=== PATIENT | male | born 1995 | race Caucasian/White ===

== ENCOUNTER 2016-07-17 11:49 | Emergency (ER) | payer BC ==
[~2016-07-17] VITALS: Ht 180.3 cm; Wt 105.0 kg
[~2016-07-17 11:49] MED LIST: FAMO-18 PO
[2016-07-17 11:51] VITALS: Ht 180.3 cm; Wt 105.0 kg
[2016-07-17] MEDS ORDERED: BACTDS PO (12:07)
[2016-07-17] MEDS ORDERED: CEPH-443 PO (12:07)
--- NOTE | 2016-07-17 12:12 | ERA ---
ER Documentation Chief Complaint Date/Time DATE: 07/17/16 TIME: 12:08 Chief Complaint PUNCTURE WOUND ON LT FOOT , STEPPED ON NAIL LAST NIGHT HPI Patient is a 21-year-old male who presents one day after sustaining a puncture wound to his right heel. Patient denies any swelling, discharge, erythema, pain , fever, ataxia, dizziness, knockout, injury to other body parts, difficulty breathing or chest pain. There are no other associated manifestations. ROS All systems reviewed and are negative except as per history of present illness. Medications Home Meds Active Scripts Sulfamethoxazole-Trimethoprim* (Bactrim* DS) 800-160 Mg Tab, 1 TAB PO BID for 5 Days, TAB Prov:RAHEEM PERLA PA-C 07/17/16 Cephalexin* (Keflex*) 500 Mg Capsule, 500 MG PO QID for 5 Days, CAP Prov:RAHEEM PERLA PA-C 07/17/16 Famotidine* (Pepcid*) 20 Mg Tablet, 20 MG PO BID Y for reflux, #30 TAB Prov:ROBIN DECKER PA-C 12/02/15 PMhx/Soc History of Surgery: No Anesthesia Reaction: No Hx Neurological Disorder: No Hx Respiratory Disorders: No Hx Cardiac Disorders: No Hx Psychiatric Problems: No Hx Miscellaneous Medical Probl: Yes (HYPOTHYROIDISM) Hx Alcohol Use: No Hx Substance Use: Yes (MARIJUANA 2XDAYS) Hx Tobacco Use: No Physical Exam Vitals Vital Signs Date Time Temp Pulse Resp B/P Pulse Ox O2 Delivery O2 Flow Rate FiO2 07/17/16 11:51 98.1 73 18 147/89 98 Physical Exam Const: Well-appearing obese 21-year-old male. Head: Atraumatic Eyes: Normal Conjunctiva ENT: Normal External Ears, Nose and Mouth. Neck: Full range of motion..~ No meningismus. Resp: Clear to auscultation bilaterally Cardio: Regular rate and rhythm, no murmurs Abd: Soft, non tender, non distended. Normal bowel sounds Skin: No petechiae or rashes Back: No midline or flank tenderness Ext: No cyanosis, or edema. Light superficial puncture wound. Can see the track of the puncture wound spanning 1 cm superiorly of the right heel. The width of the visible tract is about 1 mm. There is no opening in the skin currently. No bleeding or discharge. No erythema or swelling. Neurovascularly intact bilaterally. Neur: Awake and alert Psych: Normal Mood and Affect Results 24 hrs Current Medications Medications (Trade) Dose Ordered Sig/Scott Route PRN Reason Start Time Stop Time Status Last Admin Dose Admin Diphtheria/ Tetanus/Acell Pertussis (Adacel) 0.5 ml ONCE ONCE IM* 07/17/16 12:30 07/17/16 12:31 Procedures/MDM Patient has sustained a puncture wound to the right heel one day ago. Denies any symptoms or signs of infection. On physical exam the wound looks clean and is closed up with no bleeding or signs of infection. We will give Tdap for tetanus prophylaxis as well as discharge with Keflex and Bactrim for infection prophylaxis. Patient refuses any pain medication. Will give return precautions. Departure Diagnosis: Primary Impression: Puncture Condition: Stable Patient Instructions: Puncture Wound, Foot Additional Instructions: Return to emergency department if signs of infection arise. RAHEEM PERLA PA-C Jul 17, 2016 12:12
[2016-07-17] MEDS ORDERED: DIPHTH/TET/ACEL PERTUSS (ADULT) 0.5 ML VIAL IM* ONE (12:30)
== END 2016-07-17 13:08 | disposition home or self-care (01) ==
LOC: FTE 11:49
DX: S91.331A Puncture wound without foreign body, right foot, initial encounter (principal); E03.9 Hypothyroidism, unspecified; W45.0XXA Nail entering through skin, initial encounter; Y92.9 Unspecified place or not applicable; Z23 Encounter for immunization
CPT/HCPCS: 90471; 90715; Z7502

== ENCOUNTER 2016-08-10 12:33 | Emergency (ER) | payer BC ==
[~2016-08-10] VITALS: Wt 92.0 kg
[~2016-08-10 12:33] MED LIST changes: +BACTDS PO; +CEPH-443 PO
[2016-08-10] MEDS ORDERED: BEN25 PO (13:11)
[2016-08-10] MEDS ORDERED: PRED20TA PO (13:11)
[2016-08-10] MEDS ORDERED: CETI10CA PO (13:12)
--- NOTE | 2016-08-10 13:17 | ERD ---
ER Documentation Chief Complaint Date/Time DATE: 08/10/16 TIME: 13:12 Chief Complaint rash to gen body area. no sob noted. no vomiting or stridor HPI Patient is a 21-year-old male who presents emergency department with a generalized body rash. Patient states the rash occurred 3 days ago after hiking outside. Patient states he did take his shirt off and then tied around his neck. Patient does report increased redness to his neck region. Patient does report itching throughout his body. Patient denies any chest tightness, chest pain, shortness of breath, lip swelling, tongue swelling or throat swelling. Patient denies any new creams, lotions, detergents, foods or pets. Patient denies taking any medication for symptoms. ROS All systems reviewed and are negative except as per history of present illness. Medications Home Meds Active Scripts Cetirizine Hcl* (Zyrtec*) 10 Mg Capsule, 10 MG PO DAILY, #30 TAB.CHEW Prov:SHAWANDA TEMPLE PA-C 08/10/16 Diphenhydramine Hcl* (Benadryl*) 25 Mg Cap, 25 MG PO Q6, #30 CAP Prov:SHAWANDA TEMPLE PA-C 08/10/16 Prednisone* (Prednisone*) 20 Mg Tab, 40 MG PO DAILY for 5 Days, TAB Prov:SHAWANDA TEMPLE PA-C 08/10/16 Sulfamethoxazole-Trimethoprim* (Bactrim* DS) 800-160 Mg Tab, 1 TAB PO BID for 5 Days, TAB Prov:RAHEEM PERLA PA-C 07/17/16 Cephalexin* (Keflex*) 500 Mg Capsule, 500 MG PO QID for 5 Days, CAP Prov:RAHEEM PERLA PA-C 07/17/16 Famotidine* (Pepcid*) 20 Mg Tablet, 20 MG PO BID Y for reflux, #30 TAB Prov:ROBIN DECKER PA-C 12/02/15 Allergies Allergies: Coded Allergies: No Known Allergy (Unverified , 07/17/16) PMhx/Soc History of Surgery: Yes (TONSILLECTOMY) Anesthesia Reaction: No Hx Neurological Disorder: No Hx Respiratory Disorders: No Hx Cardiac Disorders: No Hx Psychiatric Problems: No Hx Miscellaneous Medical Probl: Yes (HYPOTHYROIDISM) Hx Alcohol Use: No Hx Substance Use: Yes (MARIJUANA 2XDAYS) Hx Tobacco Use: No FmHx Family History: No diabetes Physical Exam Vitals Vital Signs Date Time Temp Pulse Resp B/P Pulse Ox O2 Delivery O2 Flow Rate FiO2 08/10/16 12:38 98.5 74 20 150/68 98 Physical Exam GENERAL: Well-developed, well-nourished male. Appears in no acute distress. Speaking in full sentences. HEAD: Normocephalic, atraumatic. No deformities or ecchymosis. EYE: Pupils equal, round, and reactive to light. EOMs intact. No conjunctival erythema. No eye discharge. ENT: External ear without any masses or tenderness. Auditory canals clear bilaterally. TM visualized bilaterally, non-erythematous, non-bulging. Nasal mucosa pink with no discharge. Oropharynx is pink without any tonsillar erythema or exudates. No uvula deviation. No kissing tonsils. No throat swelling, no tongue swelling, no lip swelling noted. Patient able swallow without any difficulty. NECK: Supple. No meningismus. Normal ROM of the neck. LUNG: Clear to auscultation bilaterally. No rhonchi, wheezing, rales or coarse breath sounds. HEART: Regular rate and rhythm. No murmurs, rubs or gallops. BACK: No midline tenderness. EXTREMITES: Equal pulses bilaterally. No peripheral clubbing, cyanosis or edema. No unilateral leg swelling. NEUROLOGIC: Alert and oriented to person, place and time. Moving all four extremities. 5/5 strength in all extremities. Normal speech. Steady gait. SKIN: Normal color. Warm and dry. No rashes or lesions. Erythematous plaque- like lesions noted in the patient's bilateral elbow fossas, lower arms and neck. No rashes noted on the patient's back or torso. Procedures/MDM MEDICAL DECISION MAKING: This is a 21-year-old male who presents to the emergency department with a generalized rash 3 days. Patient reports the rash to be itchy. Patient is a rash started after hiking 3 days ago. Vital signs were reviewed. Patient was afebrile. Patient is not diabetic. Skin exam revealed findings consistent with hives. Given these findings, the patients presentation is most consistent with allergic reaction secondary to recent outdoor activity. I have a much lower clinical concern for necrotizing fasciitis, sepsis, gangrene, Marcus- Yazan syndrome, toxic epidural necrolysis, abscess, cellulitis, herpes zoster , viral exanthem, anaphylaxis, fungal infection, insect bite, impetigo, dermatitis. PRESCRIPTIONS: Prednisone, Benadryl, Zyrtec DISCHARGE: At this time, patient is stable for discharge and outpatient management. Anaphylaxis return precautions were discussed with the patient. Patient understands warning signs of anaphylaxis. I have advised the patient to avoid any new products, creams or possible allergens. I have advised the patient to avoid scratching the lesions. I have instructed the patient to follow-up with his/her primary care physician in 1-2 days. If symptoms persist, patient may need to see a sales support associate for further examinations and testing. I have instructed the patient to promptly return to the ER at any time for any new or worsening symptoms including increased pain, fever, redness, swelling, warmth, difficulty breathing or vomiting. The patient and/or family expressed understanding of and agreement with this plan. All questions were answered. Home care instructions were provided. Departure Diagnosis: Primary Impression: Rash due to allergy Condition: Stable Patient Instructions: First Aid: Allergic Reactions Referrals: [facility] YOU HAVE RECEIVED A MEDICAL SCREENING EXAM AND THE RESULTS INDICATE THAT YOU DO NOT HAVE A CONDITION THAT REQUIRES URGENT TREATMENT IN THE EMERGENCY DEPARTMENT. FURTHER EVALUATION AND TREATMENT OF YOUR CONDITION CAN WAIT UNTIL YOU ARE SEEN IN YOUR DOCTORS OFFICE WITHIN THE NEXT 1-2 DAYS. IT IS YOUR RESPONSIBILITY TO MAKE AN APPOINTMENT FOR FOLOW-UP CARE. IF YOU HAVE A PRIMARY DOCTOR --you should call your primary doctor and schedule an appointment IF YOU DO NOT HAVE A PRIMARY DOCTOR YOU CAN CALL OUR PHYSICIAN REFERRAL HOTLINE AT IF YOU CAN NOT AFFORD TO SEE A PHYSICIAN YOU CAN CHOSE FROM THE FOLLOWING [facility] [address] [facility] [address] [facility] [facility] [address] [facility] [facility] [address] [facility] [address] [facility] [facility]. [address] [facility] [facility] YOU HAVE RECEIVED A MEDICAL SCREENING EXAM AND THE RESULTS INDICATE THAT YOU DO NOT HAVE A CONDITION THAT REQUIRES URGENT TREATMENT IN THE EMERGENCY DEPARTMENT. FURTHER EVALUATION AND TREATMENT OF YOUR CONDITION CAN WAIT UNTIL YOU ARE SEEN IN YOUR DOCTORS OFFICE WITHIN THE NEXT 1-2 DAYS. IT IS YOUR RESPONSIBILITY TO MAKE AN APPOINTMENT FOR FOLOW-UP CARE. IF YOU HAVE A PRIMARY DOCTOR --you should call your primary doctor and schedule and appointment IF YOU DO NOT HAVE A PRIMARY DOCTOR YOU CAN CALL OUR PHYSICIAN REFERRAL HOTLINE AT . IF YOU CAN NOT AFFORD TO SEE A PHYSICIAN YOU CAN CHOSE FROM THE FOLLOWING [facility] INSTITUTIONS: [facility] [address] [place] [address] [facility] [address] [place] [address] [facility] [address] [place] [address] Additional Instructions: Call your primary care doctor TOMORROW for an appointment during the next 1-2 days.See the doctor sooner or return here if your condition worsens before your appointment time. Anaphylaxis return precautions were discussed with the patient. Return to the emergency department for any new or worsening symptoms including but not limited to chest tightness, shortness of breath, tongue swelling, lip swelling, throat swelling or loss consciousness. SHAWANDA TEMPLE PA-C August 10, 2016 13:17
== END 2016-08-10 14:11 | disposition home or self-care (01) ==
LOC: FTE 12:33
DX: R21 Rash and other nonspecific skin eruption (principal); T78.40XA Allergy, unspecified, initial encounter
CPT/HCPCS: 99283

== ENCOUNTER 2018-09-07 14:49 | Emergency (ER) | payer BC ==
[~2018-09-07] VITALS: Ht 180.3 cm; Wt 89.3 kg
[~2018-09-07 14:49] MED LIST changes: +BEN25 PO; +CETI10CA PO; -FAMO-18 PO; +FAMO-96 PO; +PRED20TA PO
[2018-09-07 15:00] VITALS: BP 156/77; PULSE 67; RESP 18; Ht 180.3 cm; Wt 89.3 kg
[2018-09-07] MEDS ORDERED: SOD CHLORIDE 0.9% 1,000 ML IV STA (15:44)
[2018-09-07] MEDS ORDERED: LIDOCAINE/MYLANTA 40 ML BTL PO STA (15:44)
[2018-09-07] MEDS ORDERED: ONDANSETRON INJ 8 MG in DEXTROSE 5% 50 ML IV STA (15:44)
--- NOTE | 2018-09-07 15:57 | ERD ---
ER Documentation Chief Complaint Chief Complaint ABD PAIN WITH VOMITING/DIARRHEA TODAY HPI 23-year-old male presents with nausea and vomiting and diarrhea this morning. States he went to a family [place] last night and just ate burgers. Denies any recent travel or sick contacts. He states that he is having nonbilious, nonbloody, vomiting with diarrhea. He also states 6 out of 10 abdominal pain that is localized at the epigastric region. The pain is intermittent and aching in character that does not radiate anywhere else. He he denies any surgical history in the abdomen region, any chest pain, any respiratory distress, any headache, any congestion. ROS All systems reviewed and are negative except as per history of present illness. Medications Home Meds Active Scripts Acetaminophen* (Tylenol*) 325 Mg Tablet, 1 TAB PO Q6 PRN for PAIN AND OR ELEVATED TEMP, #20 TAB Prov:THERESE ASHLEY PA-C 09/07/18 Ondansetron (Ondansetron Odt) 4 Mg Tab.rapdis, 4 MG PO Q6H PRN for NAUSEA AND/OR VOMITING, #10 TAB Prov:THERESE ASHLEY PA-C 09/07/18 Cetirizine Hcl* (Zyrtec*) 10 Mg Capsule, 10 MG PO DAILY, #30 TAB.CHEW Prov:SHAWANDA TEMPLE PA-C 08/10/16 Diphenhydramine Hcl* (Benadryl*) 25 Mg Cap, 25 MG PO Q6, #30 CAP Prov:SHAWANDA TEMPLE PA-C 08/10/16 Prednisone* (Prednisone*) 20 Mg Tab, 40 MG PO DAILY for 5 Days, TAB Prov:SHAWANDA TEMPLE PA-C 08/10/16 Sulfamethoxazole-Trimethoprim* (Bactrim* DS) 800-160 Mg Tab, 1 TAB PO BID for 5 Days, TAB Prov:RAHEEM PERLA PA-C 07/17/16 Cephalexin* (Keflex*) 500 Mg Capsule, 500 MG PO QID for 5 Days, CAP Prov:RAHEEM PERLA PA-C 07/17/16 Famotidine* (Pepcid*) 20 Mg Tablet, 20 MG PO BID PRN for reflux, #30 TAB Prov:ROBIN DECKER PA-C 12/02/15 Allergies Allergies: Coded Allergies: No Known Allergy (Unverified , 07/17/16) PMhx/Soc History of Surgery: Yes (TONSILLECTOMY) Anesthesia Reaction: No Hx Neurological Disorder: No Hx Respiratory Disorders: No Hx Cardiac Disorders: No Hx Psychiatric Problems: No Hx Miscellaneous Medical Probl: Yes (HYPOTHYROIDISM) Hx Alcohol Use: No Hx Substance Use: Yes (MARIJUANA 2XDAYS) Hx Tobacco Use: No Smoking Status: Never smoker FmHx Family History: diabetes Physical Exam Vitals Vital Signs Date Temp Pulse Resp B/P (MAP) Pulse Ox O2 O2 Flow FiO2 Time Delivery Rate 09/07/18 98.4 67 18 156/77 99 15:00 (103) Physical Exam Const: No acute distress Head: NCAT Eyes: Normal Conjunctiva, PERRLA Resp: Clear to auscultation bilaterally Cardio: Regular rate and rhythm, no murmurs Abd: Soft, epigastric tenderness. Normal bowel sounds. Negative McBurney's, no rebounding no guarding Skin: No petechiae or rashes Back: No midline or flank tenderness Ext: No cyanosis, or edema Neur: Awake and alert Psych: Normal Mood and Affect Result Diagram: 09/07/18 1603 09/07/18 1603 Results 24 hrs Laboratory Tests Test 09/07/18 16:03 White Blood Count 15.8 10^3/ul Red Blood Count 5.78 10^6/ul Hemoglobin 17.7 g/dl Hematocrit 52.8 % Mean Corpuscular Volume 91.3 fl Mean Corpuscular Hemoglobin 30.6 pg Mean Corpuscular Hemoglobin Concent 33.5 g/dl Red Cell Distribution Width 11.9 % Platelet Count 281 10^3/UL Mean Platelet Volume 11.0 fl Immature Granulocytes % 0.500 % Neutrophils % 90.3 % Lymphocytes % 5.6 % Monocytes % 3.1 % Eosinophils % 0.1 % Basophils % 0.4 % Nucleated Red Blood Cells % 0.0 /100WBC Immature Granulocytes # 0.080 10^3/ul Neutrophils # 14.3 10^3/ul Lymphocytes # 0.9 10^3/ul Monocytes # 0.5 10^3/ul Eosinophils # 0.0 10^3/ul Basophils # 0.1 10^3/ul Nucleated Red Blood Cells # 0.0 10^3/ul Sodium Level 143 mmol/L Potassium Level 4.6 mmol/L Chloride Level 102 mmol/L Carbon Dioxide Level 30 mmol/L Anion Gap 11 Blood Urea Nitrogen 13 mg/dl Creatinine 0.71 mg/dl Est Glomerular Filtrat Rate mL/min > 60 mL/min Glucose Level 108 mg/dl Calcium Level 9.7 mg/dl Current Medications Medications Dose Sig/Scott Start Time Status Last (Trade) Ordered Route PRN Stop Time Admin Dose Reason Admin Sodium 1,000 ml @ Q1H STAT 09/07/18 DC 09/07/18 Chloride 1,000 mls/hr IV 15:44 09/07/18 16:08 16:43 Ondansetron 54 ml @ ONCE STAT 09/07/18 DC 09/07/18 HCl 8 200 mls/hr IV 15:44 09/07/18 16:08 mg/Dextrose 16:00 40 ml ONCE STAT 09/07/18 DC 09/07/18 Miscellaneous PO 15:44 09/07/18 16:09 Medication 15:49 (Gi Cocktail (2)) Dicyclomine 20 mg ONCE ONCE 09/07/18 DC HCl IM 16:00 09/07/18 (Bentyl) 16:17 Ondansetron 4 mg STK-MED 09/07/18 DC HCl (Zofran ONCE .ROUTE 16:04 09/07/18 Inj) 16:05 Dicyclomine 20 mg ONCE ONCE 09/07/18 DC 09/07/18 HCl PO 16:30 09/07/18 16:22 (Bentyl) 16:31 Procedures/MDM ED COURSE: The patient was stable throughout ED course. I kept the patient informed of laboratory and diagnostic imaging results throughout the ED course. MEDICATIONS GIVEN: Bentyl, Zofran, GI cocktail Patient tolerated medication well with no adverse reactions. Patient reported improvement in pain. MEDICAL DECISION MAKING: Patient is a 23-year-old male presenting with a 1 day history of nausea, vomiting, and diarrhea. Patient denied any known sick contacts or recent travel. Denies any unusual foods. Patient was informed and agrees that there is a GI bug out in the community. Patient was given IV fluids, GI cocktail, Bentyl, Zofran and improved significantly while in the ER. He reports that he felt great afterwards and was ready to be discharged. Abdomen is soft, NTTP at d ischarge. H&P and other data not c/w emergent process Low suspicion for coronary syndrome, AAA, mesenteric ischemia, lower lobe pneumonia, DKA, bowel perforation, cholecystitis, choledocholithiasis, ascending cholangitis, hepatic abscess, pancreatitis, PUD, gastritis, GERD, splenic rupture, diverticulitis, UTI, pyelonephritis, nephrolithiasis, appendicitis, constipation. His vital signs were reviewed. Patient is afebrile. Patient was not hypoxic. Patient was hemodynamically stable. PRESCRIPTION: Zofran, Tylenol DISCHARGE: At this time, patient is stable for discharge and outpatient management. I have instructed the patient to follow-up with his/her primary care physician in 1-2 days. I have discussed with the patient the possibility of needing to see a specialist for further workup and imaging studies if symptoms persist. I have instructed the patient to promptly return to the ER for any new or worsening symptoms including increased pain, fever, nausea, vomiting, weakness or LOC. The patient and/or family expressed understanding of and agreement with this plan. All questions were answered. Home care instructions were provided. Disclaimer: Inadvertent spelling and grammatical errors are likely due to EHR/dictation software use and do not reflect on the overall quality of patient care. Also, please note that the electronic time recorded on this note does not necessarily reflect the actual time of the patient encounter. THERESE ASHLEY PA-C Sep 07, 2018 15:57
[2018-09-07] MEDS ORDERED: DICYCLOMINE 20 MG INJ IM ONE (16:00)
[2018-09-07] MEDS ORDERED: ONDANSETRON 4 MG INJ ONE (16:04)
[2018-09-07] MEDS ORDERED: DICYCLOMINE 10 MG CAP PO ONE (16:30)
[2018-09-07] MEDS ORDERED: ACET325T33 PO (16:50)
[2018-09-07] MEDS ORDERED: ONDA4TAB14 PO (16:50)
== END 2018-09-07 17:00 | disposition home or self-care (01) ==
LOC: FTE 14:49
DX: R10.13 Epigastric pain (principal); E03.9 Hypothyroidism, unspecified; R11.2 Nausea with vomiting, unspecified
CPT/HCPCS: 36415; 80048; 85025; 96365; J0500; J2405; J7030; Z7502; Z7610

== ENCOUNTER 2018-09-09 03:43 | Emergency (ER) | payer BC ==
[~2018-09-09] VITALS: Ht 177.8 cm; Wt 89.9 kg
[~2018-09-09 03:43] MED LIST changes: +ACET325T33 PO; +ONDA4TAB14 PO
[2018-09-09 03:48] VITALS: Ht 177.8 cm; Wt 89.9 kg
[2018-09-09] MEDS ORDERED: IBUP-1545 PO (04:58)
--- NOTE | 2018-09-09 05:32 | ERD ---
ER Documentation Chief Complaint Chief Complaint abdominal pain with n/v x 2 days HPI 22-year-old male abdominal pain with nausea vomiting for the past 2 days. Pain is mild to moderate intensity no exacerbating factors denies fevers or chills. Denies any other current complaints. Pain is mild to moderate intensity located in the right lower quadrant area w with no radiations. No recent sick contacts. No recent travel. No recent travel. Last bowel movement was today which was normal. Ate earlier today and was able to tolerate p.o. ROS All systems reviewed and are negative except as per history of present illness. Medications Home Meds Active Scripts Acetaminophen* (Tylenol*) 325 Mg Tablet, 1 TAB PO Q6 PRN for PAIN AND OR ELEVATED TEMP, #20 TAB Prov:THERESE ASHLEY PA-C 09/07/18 Ondansetron (Ondansetron Odt) 4 Mg Tab.rapdis, 4 MG PO Q6H PRN for NAUSEA AND/OR VOMITING, #10 TAB Prov:THERESE ASHLEY PA-C 09/07/18 Famotidine* (Pepcid*) 20 Mg Tablet, 20 MG PO BID PRN for reflux, #30 TAB Prov:ROBIN DECKER PA-C 12/02/15 Reported Medications Ibuprofen* (Ibuprofen*) 800 Mg Tab, 800 MG PO Q6H PRN for PAIN, TAB 09/09/18 Discontinued Scripts Cetirizine Hcl* (Zyrtec*) 10 Mg Capsule, 10 MG PO DAILY, #30 TAB.CHEW Prov:SHAWANDA TEMPLE PA-C 08/10/16 Diphenhydramine Hcl* (Benadryl*) 25 Mg Cap, 25 MG PO Q6, #30 CAP Prov:SHAWANDA TEMPLE PA-C 08/10/16 Prednisone* (Prednisone*) 20 Mg Tab, 40 MG PO DAILY for 5 Days, TAB Prov:SHAWANDA TEMPLE PA-C 08/10/16 Sulfamethoxazole-Trimethoprim* (Bactrim* DS) 800-160 Mg Tab, 1 TAB PO BID for 5 Days, TAB Prov:RAHEEM PERLA PA-C 07/17/16 Cephalexin* (Keflex*) 500 Mg Capsule, 500 MG PO QID for 5 Days, CAP Prov:RAHEEM PERLA PA-C 07/17/16 Allergies Allergies: Coded Allergies: No Known Allergy (Unverified , 09/09/18) PMhx/Soc History of Surgery: Yes (Tonsillectomy) Anesthesia Reaction: No Hx Neurological Disorder: No Hx Respiratory Disorders: No Hx Cardiac Disorders: No Hx Psychiatric Problems: No Hx Miscellaneous Medical Probl: Yes (Hypothyroidism) Hx Alcohol Use: No Hx Substance Use: Yes (Marijuana) Hx Tobacco Use: No Smoking Status: Never smoker Physical Exam Vitals Vital Signs Date Temp Pulse Resp B/P (MAP) Pulse Ox O2 O2 Flow FiO2 Time Delivery Rate 09/09/18 97.1 54 20 198/108 100 03:48 (138) Physical Exam Const: No acute distress Head: Atraumatic Eyes: Normal Conjunctiva ENT: Normal External Ears, Nose and Mouth. Neck: Full range of motion. No meningismus. Resp: Clear to auscultation bilaterally Cardio: Regular rate and rhythm, no murmurs Abd: Soft, non tender, non distended. Normal bowel sounds Skin: No petechiae or rashes Back: No midline or flank tenderness Ext: No cyanosis, or edema Neur: Awake and alert Psych: Normal Mood and Affect Result Diagram: 09/09/1840909/09/18409 Results 24 hrs Laboratory Tests Test 09/09/18 04:10 White Blood Count 15.8 10^3/ul Red Blood Count 5.87 10^6/ul Hemoglobin 18.1 g/dl Hematocrit 53.4 % Mean Corpuscular Volume 91.0 fl Mean Corpuscular Hemoglobin 30.8 pg Mean Corpuscular Hemoglobin Concent 33.9 g/dl Red Cell Distribution Width 11.9 % Platelet Count 264 10^3/UL Mean Platelet Volume 11.1 fl Immature Granulocytes % 0.400 % Neutrophils % 84.2 % Lymphocytes % 8.4 % Monocytes % 5.8 % Eosinophils % 0.7 % Basophils % 0.5 % Nucleated Red Blood Cells % 0.0 /100WBC Immature Granulocytes # 0.060 10^3/ul Neutrophils # 13.3 10^3/ul Lymphocytes # 1.3 10^3/ul Monocytes # 0.9 10^3/ul Eosinophils # 0.1 10^3/ul Basophils # 0.1 10^3/ul Nucleated Red Blood Cells # 0.0 10^3/ul Urine Color PAKO Urine Clarity CLEAR Urine pH 5.0 Urine Specific [place] 1.033 Urine Ketones TRACE mg/dL Urine Nitrite NEGATIVE mg/dL Urine Bilirubin NEGATIVE mg/dL Urine Urobilinogen 1+ mg/dL Urine Leukocyte Esterase NEGATIVE Niharika/ul Urine Hemoglobin NEGATIVE mg/dL Urine Glucose NEGATIVE mg/dL Urine Total Protein NEGATIVE mg/dl Sodium Level 143 mmol/L Potassium Level 4.1 mmol/L Chloride Level 103 mmol/L Carbon Dioxide Level 28 mmol/L Anion Gap 12 Blood Urea Nitrogen 11 mg/dl Creatinine 0.66 mg/dl Est Glomerular Filtrat Rate mL/min > 60 mL/min Glucose Level 106 mg/dl Calcium Level 9.4 mg/dl Total Bilirubin 1.1 mg/dl Direct Bilirubin 0.00 mg/dl Indirect Bilirubin 1.1 mg/dl Aspartate Amino Transf (AST/SGOT) 58 IU/L Alanine Aminotransferase (ALT/SGPT) 38 IU/L Alkaline Phosphatase 70 IU/L Total Protein 8.7 g/dl Albumin 5.0 g/dl Globulin 3.70 g/dl Albumin/Globulin Ratio 1.35 Lipase 55 U/L Procedures/MDM Medical decision makin-year-old male with abdominal pain. Evidence of mesenteric adenitis. No evidence of surgical abdomen on serial exams. He is stable for trial of outpatient management I recommended he follow-up in 8 hours for serial abdominal exams. Patient's gastrointestinal symptoms have stabilized while in the department. No evidence of severe dehydration, sepsis, or surgical abdomen. Extensive discussion with family and patient that occult disease cannot be ruled out. 8 hour recheck for repeat abdominal exam is planned. Departure Diagnosis: Primary Impression: Mesenteric adenitis Condition: Stable JOHANN GRIFFIN Sep 09, 2018 05:32
[2018-09-09] MEDS ORDERED: HYDR-3980 PO (05:34)
[2018-09-09] MEDS ORDERED: ONDA4TAB14 PO (05:34)
[2018-09-09] MEDS ORDERED: AMOX1TAB10 PO (05:34)
[2018-09-09 05:52] VITALS: BP 146/91; PULSE 78; RESP 19
== END 2018-09-09 05:54 | disposition home or self-care (01) ==
LOC: E/R 03:43
DX: I88.0 Nonspecific mesenteric lymphadenitis (principal); E03.9 Hypothyroidism, unspecified
CPT/HCPCS: 36415; 74176; 80053; 81003; 83690; 85025; Z7502

== ENCOUNTER 2018-11-09 16:31 | Emergency (ER) | payer BC ==
[~2018-11-09] VITALS: Ht 180.3 cm; Wt 89.8 kg
[~2018-11-09 16:31] MED LIST changes: +AMOX1TAB10 PO; -BACTDS PO; -BEN25 PO; -CEPH-443 PO; -CETI10CA PO; +HYDR-3980 PO; +IBUP-1542 PO; +IBUP-1545 PO; -PRED20TA PO
[2018-11-09 16:34] VITALS: BP 149/87; PULSE 97; RESP 20; Ht 180.3 cm; Wt 89.8 kg
[2018-11-09] MEDS ORDERED: ACETAMINOPHEN 325 MG TAB PO ONE (17:30)
[2018-11-09] MEDS ORDERED: LIDOCAINE 1% (MDV) 20 ML INJ SC ONE (17:30)
--- NOTE | 2018-11-09 17:44 | ERD ---
ER Documentation Chief Complaint Chief Complaint PT reports L ingrown toenail HPI 23-year-old male presents with pain in irritation and redness around his left big toenail. Denies any history of trauma, bleeding, discharge or fever. ROS All systems reviewed and are negative except as per history of present illness. Medications Home Meds Active Scripts Ibuprofen* (Motrin*) 600 Mg Tab, 600 MG PO Q6, #15 TAB Prov:TORY CHING MD 11/09/18 Ondansetron (Ondansetron Odt) 4 Mg Tab.rapdis, 4 MG PO Q6H PRN for NAUSEA AND/OR VOMITING, #10 TAB Prov:JOHANN GRIFFIN S. 09/09/18 Hydrocodone/Acetaminophen ([place] 10-325 Tablet) 1 Each Tablet, 1 TAB PO Q6H PRN for PAIN, #7 TAB Prov:JOHANN GRIFFIN S. 09/09/18 Amoxicillin/Potassium Clav (Amox-Clav 875-125 mg Tablet) 875-125 mg Tab, 1 TAB PO BID for 7 Days, #14 TAB Prov:JOHANN GRIFFIN S. 09/09/18 Acetaminophen* (Tylenol*) 325 Mg Tablet, 1 TAB PO Q6 PRN for PAIN AND OR ELEVATED TEMP, #20 TAB Prov:THERESE ASHLEY PA-C 09/07/18 Ondansetron (Ondansetron Odt) 4 Mg Tab.rapdis, 4 MG PO Q6H PRN for NAUSEA AND/OR VOMITING, #10 TAB Prov:THERESE ASHLEY PA-C 09/07/18 Famotidine* (Pepcid*) 20 Mg Tablet, 20 MG PO BID PRN for reflux, #30 TAB Prov:ROBIN DECKER PA-C 12/02/15 Reported Medications Ibuprofen* (Ibuprofen*) 800 Mg Tab, 800 MG PO Q6H PRN for PAIN, TAB 09/09/18 Allergies Allergies: Coded Allergies: No Known Allergy (Unverified , 09/09/18) PMhx/Soc Medical and Surgical Hx: pt denies Medical Hx, pt denies Surgical Hx History of Surgery: Yes (Tonsillectomy) Anesthesia Reaction: No Hx Neurological Disorder: No Hx Respiratory Disorders: No Hx Cardiac Disorders: No Hx Psychiatric Problems: No Hx Miscellaneous Medical Probl: Yes (Hypothyroidism) Hx Alcohol Use: No Hx Substance Use: Yes (Marijuana) Hx Tobacco Use: No FmHx Family History: No diabetes, No coronary disease, No other Physical Exam Vitals Vital Signs Date Temp Pulse Resp B/P (MAP) Pulse Ox O2 O2 Flow FiO2 Time Delivery Rate 11/09/18 98.1 97 20 149/87 100 16:34 (107) Physical Exam Const: No acute distress Head: Atraumatic Eyes: Normal Conjunctiva ENT: Normal External Ears, Nose and Mouth. Neck: Full range of motion. No meningismus. Resp: Clear to auscultation bilaterally Cardio: Regular rate and rhythm, no murmurs Abd: Soft, non tender, non distended. Normal bowel sounds Skin: No petechiae or rashes Back: No midline or flank tenderness Ext: No cyanosis, or edema. Ingrown toenail with small pyogenic granuloma in the left big toe. No erythema, discharge, no bony tenderness or deformities. Neur: Awake and alert Psych: Normal Mood and Affect Results 24 hrs Current Medications Medications Dose Sig/Scott Start Time Status Last (Trade) Ordered Route PRN Stop Time Admin Dose Reason Admin Lidocaine 20 ml ONCE ONCE 11/09/18 DC (Xylocaine SC 17:30 11/09/18 1% (Mdv) 20 17:31 ml) 650 mg ONCE ONCE 11/09/18 DC 11/09/18 Acetaminophen PO 17:30 11/09/18 17:11 (Tylenol 17:31 Tab) Procedures/MDM Patient has signs and symptoms of the left big ingrown toenail. He has a small pyogenic granuloma. There is no signs of significant infection, cellulitis, deformities or history to suggest fracture, dislocation. Doubt osteomyelitis. Procedure note-left big toe was prepped with Betadine. Patient was given Tylenol for pain. 3 cc lidocaine was used to perform a digital block. Anesthesia was obtained. Using clamps and scissors the ingrown portion of nail was removed without complications. The small pyogenic granuloma was excised with scissors. Wound was dressed and patient tolerated procedure well. Patient will be discharged home with instructions for wound care, ibuprofen prescription for pain, return precautions for fevers, redness, new worsening symptoms. Departure Diagnosis: Primary Impression: Ingrown toenail of right foot Condition: Stable Patient Instructions: Ingrown Toenail, Excised Additional Instructions: Recheck for redness, fevers, new worsening symptoms. TORY CHING MD Nov 09, 2018 17:44
== END 2018-11-09 17:52 | disposition home or self-care (01) ==
LOC: FTE 16:31
DX: L60.0 Ingrowing nail (principal); E03.9 Hypothyroidism, unspecified
CPT/HCPCS: Z7502; Z7610; 99282